=== PATIENT | male | born 1950 | race Caucasian/White ===

== ENCOUNTER → 2024-02-03 09:39 | Outpatient (CLI) | payer OTHER, SELFPAY | LOC: LAB 09:43 | PROVIDERS: Referring Provider Orthopaedic Surgery Adult Reconstructive Orthopaedic Surgery; Visit Provider Orthopaedic Surgery Adult Reconstructive Orthopaedic Surgery | DX: M25.551 Pain in right hip (principal); Z96.643 Presence of artificial hip joint, bilateral | CPT/HCPCS: 36415; 82495; 83018 ==

== ENCOUNTER 2024-09-03 11:43 | Inpatient (IN) | payer MEDICARE, SELFPAY ==
[2024-08-28 08:41] VITALS: BMI 25.7
[2024-09-03] VITALS (9 sets, daily range): BP systolic 90–156; BP diastolic 62–87; PULSE 45–78; RESP 12–24; TEMP 36.2–36.5; O2SAT 95–100; BMI 26.0
--- NOTE | 2024-09-03 | DI.RAD.S_ITS ---
PROCEDURE: XR HIP W PEL IF DONE LT 2V INDICATIONS: LT TOTAL HIP TECHNIQUE: Two views of the left hip were acquired. COMPARISON: [facility], CR, XR HIP W PEL IF DONE LT 2V, 09/03/2024, 15:09. FINDINGS: Bones: There are no osseous abnormalities. SI and hip joints: Left total hip prosthesis is anatomically aligned. Older right total hip prosthesis also anatomically aligned without loosening or infection. Small amount of heterotopic calcification seen in the periarticular region Soft tissues: Gas and soft tissue swelling in the surgical site seen as expected IMPRESSION: Left hip prosthesis in anatomic alignment Dictated by: Saw Solano M.D. on 09/04/2024 at 10:51 Approved by: Saw Solano M.D. on 09/04/2024 at 10:52
--- NOTE | 2024-09-03 06:00 | DI.RAD.S_ITS ---
PROCEDURE: XR HIP W PEL IF DONE LT 2V INDICATIONS: angel TECHNIQUE: Fluoroscopic guidance utilized for a left total hip arthroplasty COMPARISON: None. FINDINGS: Fluoroscopic images submitted for a left total hip arthroplasty. Please see operative note for further discussion. IMPRESSION: Fluoroscopic guidance. Dictated by: Kingsley Canela M.D. on 09/04/2024 at 12:33 Approved by: Kingsley Canela M.D. on 09/04/2024 at 12:33
[2024-09-03] MEDS: LACTATED RINGERS 1,000 ML 42 ML IV ×2 (12:48→15:26)
[2024-09-03] MEDS: CELECOXIB 200 MG CAPSULE 400 MG PO (12:49)
[2024-09-03] MEDS: ACETAMINOPHEN 325 MG TABLET 975 MG PO (12:49)
--- NOTE | 2024-09-03 13:17 | PM.PREOP ---
Pre-operative Note Interval Note History & Physical reviewed/Exam performed by Physician: Yes Changes to H&P: No
[2024-09-03] MEDS: CEFAZOLIN 2 GM/100 ML PREMIX 100 ML IV ×2 (14:15→22:46)
--- NOTE | 2024-09-03 14:43 | SUR.OPER ---
Patient supine on padded [place] table, both arms on padded arm boards at <90, both legs secured in padded traction boots and positioned per surgeon, padded post at patient's groin, pressure points checked and padded.
[2024-09-03] MEDS: ROPIVACAINE/EPI/CLONIDINE/KET 50 ML SYRINGE INJ (14:49)
[2024-09-03] MEDS: TRANEXAMIC ACID 1,000 MG VIAL 2000 MG INJ ×2 (14:50→16:09)
--- NOTE | 2024-09-03 16:22 | P.OP_ITS ---
Operative Date/Time/Diagnoses Date of procedure: 09/03/24 Pre-op diagnosis: Left hip osteoarthritis Post-op diagnosis: same Procedure & Clinicians Procedure: Left total hip arthroplasty Same procedure as scheduled: Yes Surgeon: Danny Boland Laundry Sorter: Alcira Thakur Anesthesia Type: Spinal, Sedation and Local Operative Notes Estimated Blood Loss (mL): 250 Procedure in detail: Left Uncemented Direct Anterior Depuy Total Hip Arthroplasty: Implants: * Hartley Gription size 64 cup?with +4 liner * Actis femoral stem size 10 high offset? * 36 mm -2 ceramic femoral head? Procedure Summary: This 74-year-old male patient is very tall and had bony anatomy consistent with this, as I utilized a 64 cup and a 10 stem. I had templated him for a standard polyethylene liner but the only size 64 liner we had in the hospital today was so I utilized a +4 liner. He had only been 2 mm short preoperatively and the end result after a fair amount of trialing with different constructs was that I used a-2 head after doing some extra broaching with the size 10 stem to sink it as much as possible in order to minimize the total length of his construct. I had templated him for a standard offset stem but with the transitioned to a-2 head it was necessary to utilize a high offset stem. The final construct was appropriate in all parameters and I was physically unable to dislocate his hip with maximum external rotation past 120?. Procedure in Detail: This patient was seen preoperatively and evaluated for hip pain which was refractory to numerous nonoperative treatment modalities. Their hip pain correlated with radiographic changes demonstrating significant degeneration in the hip joint. The risks and benefits of continued nonoperative management versus operative management were discussed at length and all of the patient?s questions were answered. Additional educational materials providing further details beyond our discussion in clinic were provided via a publicly available patient education video which included the incidence of medical complications associated with total hip arthroplasty, reasons for revision following total hip arthroplasty, and patient satisfaction rates following total hip arthroplasty. That video can be accessed at [email or web address] . With this understanding of the risks inherent to the procedure, the patient elected to move forward with operative management. Following preoperative optimization, the patient was scheduled for surgery. The patient was met in the preoperative holding area the day of the procedure and all questions were answered. The patient?s nares were swabbed with betadine in order to decolonize them from MRSA. Informed consent was signed and the left limb was marked with indelible ink.? The patient was brought back to the operating room where anesthesia was induced. The patient was transferred to the [place] table and all bony prominences were padded. The operative site was prepped and draped in the usual sterile fashion. Prior to incision, tranexamic acid and cefazolin were administered. Operative templating images were displayed demonstrating the anticipated implant sizes and correct operative extremity. A timeout procedure was performed verifying the patient?s identity, medical comorbidities, allergies, relevant medications, anesthesia type and the surgical plan. All present were in agreement. The assistance of a physician human resources benefits assistant was required for positioning, room setup, soft tissue retraction and wound closure. Without this assistance, the procedure would have been significantly more challenging and time consuming.?? A direct anterior approach to the hip was utilized. This was performed with a longitudinal incision through a Heuter interval. The incision was planned 2 cm distal and 2 cm lateral to the ASIS extending towards the lateral patella, in line with the muscle body of the TFL. Following incision, the subcutaneous tissue was dissected while taking care to avoid injury to the lateral femoral cutaneous nerve. The fascia overlying the TFL was identified by dissecting off the overlying fat and identifying perforating vessels to the TFL. The TFL fascia was incised and dissected away from the medial border of the TFL. A cobra retractor was placed over the superior femoral neck between the abductors and the hip capsule and used to reflect the TFL laterally. A Novato self-retainer was then placed in the distal aspect of the wound between the TFL and the rectus femoris. This was tensioned to open up the direct anterior interval and the lateral circumflex vessels were identified and coagulated using electrocautery. The floor of the TFL fascia was incised, exposing the pericapsular fat overlying the hip capsule. A second cobra retractor was placed on the inferior femoral neck. A double-bent soft tissue retractor was placed on the anterior wall of the acetabulum and used to tension the reflected head of rectus femoris, which was then released in order to limit soft tissue tension. A capsulotomy was made in the midline of the anterior hip capsule in line with the femoral neck ending at the vastus tubercle. The double-bent retractor was removed in order to limit the amount of time that a soft tissue retractor remained on the anterior wall and protect the femoral nerve. Tag stitches were placed in the superior and inferior leaflets of the hip capsule. An Ross soft tissue retractor was introduced over the tag stitches and tensioned in the interval between the rectus femoris and the TFL in order to retract and protect those muscles. The cobra retractors were replaced intracapsularly, with one over the superior neck in the pocket created by the base of the greater trochanter and the other on the femoral head. The capsulotomy was extended laterally to the base of the greater trochanter and medially to the lesser trochanter. This required externally rotating the hip. Once the lesser trochanter had been identified, a neck cut was planned according to measurements from preoperative templating. A ruler was cut at the length measured between the superior aspect of the lesser trochanter and the collar of the prosthesis. This line was extended towards the inferior aspect of the lateral cobra retractor to plan a cut which would leave minimal residual femoral neck laterally. The neck was cut at 60 degrees of external rotation along that line. A second cut was performed to remove a large napkin ring and facilitate head extraction. The napkin ring cut and femoral head were removed.?? A broad anterior wall retractor was placed between the labrum and the anterior capsule so that the anterior capsule would prevent capturing and pinching the femoral nerve anteriorly. An additional retractor was placed on the posterior wall. External rotation and traction were applied through the [place] table so that the cut surface of the femoral neck would not restrict access to the acetabulum. The labrum was excised sharply and the pulvinar was excised with electrocautery to limit bleeding from branches of the obturator artery. Acetabular reamers were selected based on preoperative templating and measurements of the excised femoral head. These were introduced into the acetabulum. Fluoroscopy was utilized to replicate a standing AP pelvis radiograph by centering over the pelvis, rotating until there was appropriate symmetry between the obturator foramen, and introducing caudal tilt to match the position of the pubic symphysis relative to the sacrococcygeal junction according to the patient?s anatomy. Fluoroscopy was utilized to ensure appropriate reaming depth. Once satisfied with the reaming depth corresponding to the preoperative template and the pinch fit between the columns, an appropriate sized acetabular cup was selected which would provide 1 mm of press-fit. This cup was introduced and manipulated until appropriate abduction and anteversion angles were obtained with careful attention to appropriate abduction and anteversion angles as evaluated by the position of the cup relative to the anterior and posterior madrigal of the acetabulum and the AP fluoroscopy which recreated the patient?s standing radiograph. The cup was impacted into place. Peripheral osteophytes were removed. The acetabular liner was then placed with care to ensure locking of the locking mechanism.? Attention was then turned to the femur. All retractors were removed, traction was released, a retractor was placed in the interval between the hip capsule and the gluteus minimus, and the hip was externally rotated to 90 degrees. Traction was applied through the [place] table to tension the lateral capsule and this was released using electrocautery. Traction was released and a [place] hook was placed posteriorly around the proximal femur at the level of the vastus ridge. The table height was lowered in order to restrict the tension on the anterior structures during hip hyperextension to limit the risk of femoral nerve palsy. With traction off and the hip at 90 degrees of external rotation, the hip was hyperextended and adducted while manually elevating the femur away from the acetabulum with the [place] hook to ensure it would not be caught behind the greater trochanter. An asymmetric retractor was placed over the calcar and a broad double-pronged retractor was placed over the greater trochanter. The tag stitch capturing the lateral leaflet of the capsule was moved to the medial side, leaving the conjoined and piriformis tendons isolated in the face of the greater trochanter. The hip was externally rotated and elevated. A release of the conjoined tendon was not necessary in order to obtain adequate exposure for broaching. The canal was opened with an opening broach and a rasp was used to remove cancellous bone. A rongeur was used to remove the residual lateral bone at the base of the greater trochanter to avoid placing the stem in varus. The f emur was then broached to the appropriate sized stem yielding good rotational fit and fill of the canal as well as appropriate version of the stem trial. Neck and head trials were placed, all retractors were removed and the hip was returned to neutral abduction and extension. I then reduced the hip. Initial trialing was performed with a size 10 broach, a standard offset neck and a -2 head. I initially manually externally rotated the hip and found no instability. I then locked the hip in 45 degrees of external rotation and dropped it to the floor with traction off which demonstrated no instability. An AP pelvis fluoroscopic image matching the preoperative standing radiograph with both lesser trochanters visible and both hips in 40 degrees of external rotation demonstrated that the operative side was slightly long in terms of length but had obvious decreased offset. I therefore transitioned to a +1.5 head to try to increase my offset. The offset with that construct looked more appropriate but the hip was obviously significantly long. I therefore placed a high offset stem to ensure that it would not look excessively offset and got fluoroscopic images with the which demonstrated that offset appeared appropriate. As the +1.5 head had too much lengths, and the-2 head had 2 little offset when I trialed with a standard offset neck, utilization of a high offset stem and a-2 head allowed me to achieve an appropriate construct. AP and lateral hip fluoroscopic images were obtained to evaluate the broach size which demonstrated good canal fill. The hip was dislocated and I returned to the broaching position. Based on my evaluation during initial trialing I planned to place a high offset size 10 stem and a-2 head. In order to decrease the length of my construct as much as possible rebroached the femur with the size 10 broach to try to sink it. I would estimate that I was able to sink it 2-3 mm further in order to further decrease leg length. The definitive stem was placed and the trunnion was cleaned and dried. I placed a ceramic head onto the trunnion and impacted it into place on the [place]man taper.?? All retractors were removed and the hip was reduced. A dilute mixture of betadine and peroxide was used to bathe the soft tissues during final fluoroscopic assessment. Appropriate component positioning was confirmed on an AP pelvis radiograph with the operative and nonoperative legs in 40 degrees of external rotation, evaluating leg length and offset. Appropriate stem fill was evaluated on AP and lateral hip radiographs. No fractures were identified on these radiographs. There was no hip instability with maximum (120?) external rotation as well as a 45 degree drop test. The hip was copiously irrigated with pulse lavage. The capsule was closed with absorbable interrupted suture. The TFL fascia was closed with barbed suture while carefully protecting the lateral femoral cutaneous nerve from entrapment. A mixture of Ropivacaine, Epinephrine, Clonidine and Toradol was infiltrated throughout the soft tissues. The skin was closed with 2-0 and 3-0 sutures. Surgical glue was applied and a soft dressing was placed.??The sponge, instrument and needle counts were reported as being correct at the end of the case.??No obvious complications occurred. The patient was transferred from the [facility] back to a stretcher. The patient emerged from anesthesia without difficulty and was taken to the PACU in a stable condition.? Plan for aftercare: * Anterior hip precautions * Weightbearing as tolerated * Aspirin 81 twice per day for DVT prophylaxis * Anticipate discharge to a usp facility, [facility], after a 3 day inpatient stay. [place] and we are going to prolong him returning to the bone as long as possible for him to recover his mobility beforehand to avoid any falls * Patient should use his own eye drops and nebivolol during his hospital stay with us * Mobilize in the halls as much as is logistically possible. If physical therapy is unavailable for mobilization, then patient should mobilize with nursing staff * Multimodal pain regimen with no IV opioids ordered * Apply ice machine to operative hip. Ensure that sufficient ice is in the chamber for the pad to remain cold * Follow up at [facility] in 2 weeks * Detailed postoperative instructions available at [email or web address]
[2024-09-03] MEDS: ACETAMINOPHEN 325 MG TABLET 650 MG PO (18:20)
[2024-09-03] MEDS: IBUPROFEN 600 MG TABLET PO (18:21)
[2024-09-03] MEDS: LACTATED RINGERS 1,000 ML 100 ML IV (18:22)
[2024-09-03] MEDS: ASPIRIN EC 81 MG TABLET PO (20:19)
[2024-09-03] MEDS: TRAMADOL 50 MG TABLET PO (20:19)
[2024-09-03] MEDS: DOCUSATE 100 MG CAPSULE PO (20:20)
[2024-09-03] MEDS: FAMOTIDINE 20 MG TABLET 10 MG PO (20:21)
[2024-09-03] MEDS: MELATONIN 3 MG TABLET 6 MG PO (20:21)
[2024-09-03] MEDS: TRAZODONE 50 MG TABLET PO (20:26)
[2024-09-04] MEDS: IBUPROFEN 600 MG TABLET PO ×5 (00:06→23:26)
[2024-09-04] MEDS: ACETAMINOPHEN 325 MG TABLET 650 MG PO ×5 (00:07→23:27)
[2024-09-04 00:22] VITALS: BP 116/78; PULSE 74; RESP 20; TEMP 37.2; O2SAT 95
[2024-09-04] MEDS: CALCIUM CARBONATE 500 MG TAB PO (00:40)
[2024-09-04] MEDS: CEFAZOLIN 2 GM/100 ML PREMIX 100 ML IV (05:48)
[2024-09-04 06:05] LABS: Hematocrit 36.3 % (41-53); Hemoglobin 12.2 g/dL (13.5-17.5)
[2024-09-04 07:00] VITALS: BP 113/71; PULSE 72; RESP 18; TEMP 36.6; O2SAT 96
--- NOTE | 2024-09-04 07:28 | PM.PNPO.1 ---
Subjective Subjective Date Patient Seen: 09/04/24 Time Patient Seen: 08:01 Interval history: Mr Holden is sitting up in bed, comfortable. Good pain control w/ IBPN, Tylenol, and ice. Has been OOB but has not yet worked w/ PT. Denies nausea. Voiding without difficulty. Exam Vital Signs (past 8 hours): - 09/04/24 00:22 Temperature 98.9 F Pulse Rate 74 Respiratory Rate 20 Blood Pressure 116/78 Pulse Oximetry 95 Oxygen Flow Rate 0 Oxygen Delivery Method Room Air Oxygen Flow Rate 0 Narrative Exam Narrative: 4/5 hip flexors, quadriceps, hamstrings; 5/5 PF, DF, EHL on left. Sensation to touch intact throughout LLE. Calf soft and compressible. Aquacel dressing CDI. Objective Labs 09/04/24 05:50 Labs: Laboratory Results - last 24 hr 09/04/24 05:50 Hgb 12.2 L Hct 36.3 L PFSH Medical History (Updated 08/28/24 @ 12:52 by Kailee Rangel RN) History of angina History of COVID-19 (03/2023) Skin cancer Left shoulder pain Osteoarthritis Decreased GFR Hearing loss Glaucoma RLS (restless legs syndrome) BPH (benign prostatic hyperplasia) Insomnia HLD (hyperlipidemia) HTN (hypertension) GERD (gastroesophageal reflux disease) Diastolic dysfunction CAD (coronary artery disease) Surgical History (Updated 09/04/24 @ 07:28 by Alcira Thakur PA-C) History of orthopedic surgery Hx of tonsillectomy History of transurethral resection of prostate Hx of eye surgery (2022) H/O vasectomy History of total right hip replacement (~2013) History of total right knee replacement (07/30/21) Hx of heart artery stent (2019) Social History household members: none Smoking Status: Never smoker alcohol intake: current Assessment & Plan Post-op Assessment and plan (1) S/P total hip arthroplasty: Assessment and Plan narrative: 1) Weightbearing as tolerated, anterior hip precautions. 2) His plan is to stay at [facility] while his friend's house is being readied for him, then he will stay with his friend for a month prior to going home. Discharge planning has been consulted. 3) ASA 81mg BID x 4 weeks for VTE prophylaxis. 4) Multimodal pain control to include use of ice machine. Postoperative Procedures: Procedures Operation Date: 09/03/24 13:45 Actual Procedure Side Surgeon p Total Hip Arthroplasty/Anterior Approach Left Danny Boland MD Postoperative day: 1 Quality VTE Deep Vein Thrombosis/Pulmonary Embolism Present on Admission: No
--- NOTE | 2024-09-04 08:06 | PC.NURSE ---
Patients dressing to l.anterior hip is cdi, patient is able to lift his leg up and he states that he is comfortable this morning. CMS wnl and ppx2. Daughter is visiting from [place]. Patient is going to be going to rehab as he lives on a boat and doesnt have much room to move around.
[2024-09-04] MEDS: DOCUSATE 100 MG CAPSULE PO ×2 (09:27→20:37)
[2024-09-04] MEDS: TORSEMIDE 10 MG TABLET 5 MG PO (09:27)
[2024-09-04] MEDS: FAMOTIDINE 20 MG TABLET 10 MG PO ×2 (09:27→20:37)
[2024-09-04] MEDS: ATORVASTATIN 20 MG TABLET 40 MG PO (09:27)
[2024-09-04] MEDS: ASPIRIN EC 81 MG TABLET PO ×2 (09:27→20:37)
[2024-09-04] MEDS: POTASSIUM CHLORIDE 10 MEQ TAB PO (09:28)
[2024-09-04] MEDS: EZETIMIBE 10 MG TABLET PO (09:32)
[2024-09-04] MEDS: TIMOLOL EYE-BOTH ×2 (10:31→20:40)
[2024-09-04] MEDS: SODIUM CHLORIDE 0.9% FLUSH 10 ML IV ×2 (10:31→20:40)
[2024-09-04] MEDS: DORZOLAMIDE EYE-BOTH ×2 (10:31→20:40)
--- NOTE | 2024-09-04 10:55 | OT.IP.EVAL ---
Current Diagnoses Unilateral primary osteoarthritis, left hip (09/03/24) Presence of unspecified artificial hip joint (09/03/24) Surgery Performed Operation Date: 09/03/24 13:45 Actual Procedures p Total Hip Arthroplasty/Anterior Approach(Left) - Danny Boland MD Past Medical History (Last Updated 08/28/24 @ 12:52 by Kailee Rangel RN) BPH (benign prostatic hyperplasia) CAD (coronary artery disease) Decreased GFR Diastolic dysfunction GERD (gastroesophageal reflux disease) Glaucoma Hearing loss History of angina History of COVID-19 (03/2023) HLD (hyperlipidemia) HTN (hypertension) Insomnia Left shoulder pain Osteoarthritis RLS (restless legs syndrome) Skin cancer Surgical History (Last Updated 08/28/24 @ 12:52 by Kailee Rangel RN) H/O vasectomy History of orthopedic surgery History of total right hip replacement (~2013) History of total right knee replacement (07/30/21) History of transurethral resection of prostate Hx of eye surgery (2022) Hx of heart artery stent (2019) Hx of tonsillectomy Occupational Therapy Inpatient Evaluation/Re-Eval M1 PT/OT-IP Prior Functional Status Start: 09/04/24 10:58 Freq: NEEDED Status: Active Protocol: Document 09/04/24 10:58 [facility] (Rec: 09/04/24 11:12 [facility] [id number]) Medical Review Prior Functional Status Communication I Mobility and Gait Having pain which limited his mobility. Activities of Daily Living and IADL's Pt has pain with ADL and IADL needs. Prior Functional Level (Other details) Pt lives on a boat. Social History Household Members none Living Arrangements Other Number of Floors (Floors) Two Floors. Pt lives on a 40 ft boat. Number of Stairs To Enter/Railing? Pt has two step with no rails and then having to step over to get on his boat and then having to walk on the edge of the boat and then step into the boat. There are various surfaces and levels that pt has to negotiate on the boat. There are 5 steep steps with bilateral rails to get down to the main cabin area. Home Environment Standard Height Toilet Home Equipment Raised Toilet Seat w/Armrests Additional Social History Comment Pt has a very high bed and low ceiling and states has to spin himself on his bottom in order to get into bed. Pt states showers at the gym or [employer]. M2 OT-IP Current Condition Start: 09/04/24 10:58 Freq: Status: Active Protocol: Document 09/04/24 10:58 [facility] (Rec: 09/04/24 11:12 [facility] [id number]) Occupational Therapy Current Condition Current Condition Evaluation Date 09/04/24 Treatment Diagnosis S/P L KARL Diagnosis Onset Date 09/03/24 Post Operative Precautions Anterior Hip Precautions No Hip Extension,No Hip External Rotation M3 OT- IP Subjective and Pain Start: 09/04/24 10:58 Freq: Status: Active Protocol: Document 09/04/24 10:58 [facility] (Rec: 09/04/24 11:12 [facility] [id number]) OT- Subjective Occupational Therapy Visit Type Type Initial Evaluation Visit Start Time 10:25 Visit Stop Time 10:55 Occupational Therapy Visit Comments Patient Comments Pt agreed to work with OT, pt' s daughter in the room. Patient/Caregiver Goals TO go to skilled rehab. OT Pain Assessment Pain When Pain Assessed At Rest Pain Present Pain Present Denied Pain M4 OT- IP ADL's Start: 09/04/24 10:58 Freq: Status: Active Protocol: Document 09/04/24 10:58 [facility] (Rec: 09/04/24 11:12 [facility] [id number]) OT ECS-Fvkj-Cgunvrm General Evaluation Self-Feeding Ability Independent OT ADL-Grooming General Evaluation Grooming Ability Independent OT ADL-Oral Care General Eval Oral Care Ability Independent OT ADL-Dressing General Eval Lower Body Dressing Ability Maximum Assistance Comments OT Dressing Comments Able to practice use of cold type composing machine operator and sock aid with pt. OT ADL-Toileting Comments OT Toileting Comments Spoke about standing to wipe may be easier and use of wet ones. In addition to use a urinal at night. OT ADL-Bathing Comments OT Bathing Comments Spoke of shower chair /tub bench as pt's friend has a tub shower. Pt to stay at their house after skilled rehab- M5 OT- IP IADL's Start: 09/04/24 10:58 Freq: Status: Active Protocol: Document 09/04/24 10:58 [facility] (Rec: 09/04/24 11:12 [facility] [id number]) OT-Instrumental Activities of Daily Living Deficits IADL Deficits Identified Deficits Home Safety Awareness Awareness of Need for Assistance at Home Good Awareness Ability to Problem Solve Emergency Able to Problem Solve Situations Medication Management Medication Management Comments Prior pt did. Money Management Money Management Comments Prior pt did. Meal Preparation Meal Preparation Comments Pt will need assist. Nail Puller Nail Puller Comments Pt will need assist. M6 OT- IP Functional Cognition Start: 09/04/24 10:58 Freq: Status: Active Protocol: Document 09/04/24 10:58 [facility] (Rec: 09/04/24 11:12 [facility] [id number]) Cognitive Factors Limiting Selfcare Function Cognitive Ability Level of Alertness Alert Patient Orientation Name,Place,Situation Attention Span Ability Capable of Focused Attention, Capable of Sustained Attention Ability to Follow Commands Able to Follow One Step Commands Memory Description Short Term Impaired Cognitive Comments Cognitive Assessment Comments Pt a little groggy and forgetful and repeating stories of his last hip sx. Pt needing initial reminders of his anterior precautions. OT- Vision and Hearing OT- Hearing Assessment OT- Hearing Assessment Hearing Impaired,Use of Hearing Aids OT- Vision Assessment Visual Acuity Glasses All The Time Visual Attentiveness WFL Occular Pursuits WFL M7 OT- IP Mobility and Balance Start: 09/04/24 10:58 Freq: Status: Active Protocol: Document 09/04/24 10:58 [facility] (Rec: 09/04/24 11:12 [facility] [id number]) OT-Transfer Assessment Sit to and From Stand Sit to and from Stand Contact Guard Assistance Transfers Transfer Ability Standby Assistance,Contact Guard Assistance Technique Transfer Destination Bed,Toilet Transfer Technique Stand Step Pivot Devices Transfer Assistive Devices Gait Belt,Front Wheeled Walker Comments Mobility Comments Pt CGA/close SBA with FWW, CGA while coming to stand and sitting to the edge of the bed. VC to push on surfaces when coming to stand. OT- Balance Assessment Sitting Balance and Reactions Static Sitting Balance Ability Normal Dynamic Sitting Balance Ability Good Standing Balance and Reactions Static Standing Balance Ability Good Dynamic Standing Balance Ability Good M8 OT- IP Objective Assessments Start: 09/04/24 10:58 Freq: Status: Active Protocol: Document 09/04/24 10:58 [facility] (Rec: 09/04/24 11:12 [facility] [id number]) OT Gross Range of Motion Upper Extremity Range of Motion Assessment Within Functional Limits OT Strength Upper Extremity Strength Assessment Within Functional Limits M9 OT- IP Assessment and Plan Start: 09/04/24 10:58 Freq: Status: Active Protocol: Document 09/04/24 10:58 [facility] (Rec: 09/04/24 11:12 [facility] [id number]) OT Summary Assessment and Plan Potential Rehabilitation Potential Excellent Analytic Complexity at Evaluation Low Summary OT Impairments Balance,Functional Mobility, Dressing,Toileting,Bathing, Toilet Transfers,Shower Transfers Progress Towards Goals Progressing Toward Goals Assessment Summary Pt low complexity and main barriers are steps and various level on his boat, and needing occasional reminders of his anterior precautions. Pt to go to skilled rehab when medically stable. Goals Dressing Goal Independent,Music Educator,Sock Aid Toileting Goal Independent Bathing Goal Independent Toilet Transfer Goal Independent Shower Transfer Goal Independent OT-Other Goals Goals based on use SPC as pt not able to use FWW on the boat. Days to Meet Goals 15 Frequency of Treatment Other frequency 5x/week Treatment Plan OT Treatment Plan ADL Training,Functional Mobility,Patient/Family Education,Discharge Planning Discharge Recommendations OT Discharge Recommendations SNF Rehab Home Equipment Needs LB dressing equipment Transportation Needs at Discharge Private Vehicle,Wheelchair/ Cabulance
--- NOTE | 2024-09-04 11:15 | PT.IIE ---
Current Diagnoses Unilateral primary osteoarthritis, left hip (09/03/24) Presence of unspecified artificial hip joint (09/03/24) Surgery Performed Operation Date: 09/03/24 13:45 Actual Procedures p Total Hip Arthroplasty/Anterior Approach(Left) - Danny Boland MD Surgical History (Last Updated 08/28/24 @ 12:52 by Kailee Rangel RN) H/O vasectomy History of orthopedic surgery History of total right hip replacement () History of total right knee replacement (07/30/21) History of transurethral resection of prostate Hx of eye surgery (2022) Hx of heart artery stent (2019) Hx of tonsillectomy Medical History (Last Updated 08/28/24 @ 12:52 by Kailee Rangel RN) BPH (benign prostatic hyperplasia) CAD (coronary artery disease) Decreased GFR Diastolic dysfunction GERD (gastroesophageal reflux disease) Glaucoma Hearing loss History of angina History of COVID-19 (03/2023) HLD (hyperlipidemia) HTN (hypertension) Insomnia Left shoulder pain Osteoarthritis RLS (restless legs syndrome) Skin cancer Physical Therapy Inpatient Evaluation/Re-Eval M1 PT/OT-IP Prior Functional Status Start: 09/04/24 12:57 Freq: NEEDED Status: Active Protocol: Document 09/04/24 11:15 [facility] (Rec: 09/04/24 13:12 [facility] [id number]) Medical Review Prior Functional Status Medical History Reviewed No Communication able to make needs known Mobility and Gait pt stated that he was independent with all mobilities and ambulation without AD Social History Household Members none Living Arrangements Apartment/Condo Number of Floors (Floors) One Floor Number of Stairs To Enter/Railing? pt lives on a boat but plans to d/c to his friends house after SNF rehab: stated that his friends apartment will only be available by sep. info providing is regarding friend's apartment set up: 2 steps without rails to enter Home Environment Standard Height Toilet,Tub/ Shower Home Equipment Straight Cane,Raised Toilet Seat w/Armrests,Technical Clerk M2 PT-IP Current Condition Start: 09/04/24 12:57 Freq: NEEDED Status: Active Protocol: Document 09/04/24 11:15 [facility] (Rec: 09/04/24 13:12 AB [id number]) Physical Therapy Current Condition Current Condition Evaluation Date 09/04/24 Treatment Diagnosis s/p L KARL anterior: difficulty in walking Onset Date 09/03/24 M3 PT-IP Subjective Start: 09/04/24 12:57 Freq: NEEDED Status: Active Protocol: Document 09/04/24 11:15 [facility] (Rec: 09/04/24 13:12 AB [id number]) Subjective Physical Therapy Visit Type Type Initial Evaluation Visit Start Time 11:15 Visit Stop Time 12:00 Number of NURSING INFORMATICS SPECIALIST Visits 0 Physical Therapy Visit Comments Patient Comments agreeable to do PT Therapy Pain Assessment Pain Present Pain Present Denied Pain M4 PT-IP Mobility and Gait Start: 09/04/24 12:57 Freq: NEEDED Status: Active Protocol: Document 09/04/24 11:15 AB (Rec: 09/04/24 13:12 AB [id number]) PT-Bed Mobility Assessment Supine to Sit Supine to Sit Minimal Assistance Sit to Supine Sit to Supine Minimal Assistance PT-Transfer Assessment Sit to and From Stand Sit to and from Stand Standby Assistance,Contact Guard Assistance,Minimal Assistance,1 Person Assistance ,Use of Upper Extremities Equipment Transfer Assistive Device Gait Belt,Front Wheeled Walker Orthotic/Prosthetic Devices or Brace: No Transfers Transfer Destination Bed,Chair Transfer Technique ambulated Transfer Ability Level of Assist Standby Assistance,1 Person Assistance,Use of Upper Extremities Comments Mobility Comments checked on pt and pt up standing by the sink finishing up brushing his teeth and puts on his hearing aid. pt's daughter in room. pt ambulated to EOB SBA using FWW . pt agreed to do PT. obtained PLOF and home set up. pt already saw OT. reviewed hip precautions and pt only recalled 1/2. educated pt regarding anterior hip precautions. pt completed sit to stand from EOB SBA to CGA and ambulated to the EOB using FWW SBA. completed sit<> supine min A for LLE mobility and max cues for techniques. pt completed sit to stand from the EOB SBA to CGA and ambulated in room ~ 30 ft SBA. pt sat on the chair and rested. asked pt again regarding hip precautions and only recalled 1/2. educated hip precautions again. pt completed sit to stand from chair min A and max cues. pt with heavy UE use on chair to get up with unsteady intial standing. instructed pt to sit back down. educated pt on sit <>stand and completed x 2 from chair CGA and max cues. positioned pt on the chair. call light and table placed within reach. Gait Assessment Gait Gait Assistance Required: Standby Assistance Distance (Feet) 30 Able to Maintain Weight Bearing Status Yes During Gait Assistive Devices Assistive Device Gait Belt,Front Wheeled Walker Orthotic/Prosthetic Devices or Brace: No Gait Deviations General Gait Pattern Decreased Stride Length, Decreased Feet Clearance Factors Limiting Gait Function Factors Limiting Gait Function Decreased Activity Tolerance, Decreased Strength,Difficulty Following Directions,Limited Range of Motion,Poor Balance, Poor Safety Awareness PT-Balance Assessment Sitting Balance and Reactions Static Sitting Balance Ability Normal Dynamic Sitting Balance Ability Good Standing Balance and Reactions Static Standing Balance Ability Fair Dynamic Standing Balance Ability Fair Device Used FWW M5 PT-IP Objective Assessments Start: 09/04/24 12:57 Freq: NEEDED Status: Active Protocol: Document 09/04/24 11:15 AB (Rec: 09/04/24 13:12 AB [id number]) Orientation Orientation/Cognition Level of Alertness Alert Orientation Name,Place,Situation Language Function Ability Hard of Hearing Safety Awareness Decreased Safety Awareness Memory Description Short Term Impaired Gross Range of Motion Lower Extremity ROM Assessment Right Impaired Impairments R hip flexion limited ~ 90-100 deg Strength Lower Extremity Strength Assessment Left Impaired Hip 3+/5 Knee 4-/5 Coordination Assessment Gross Coordination Gross Coordination WNL Muscle Tone Muscle Tone WNL Yes M6 PT-IP Treatment Start: 09/04/24 12:57 Freq: NEEDED Status: Active Protocol: Document 09/04/24 11:15 AB (Rec: 09/04/24 13:12 AB [id number]) Physical Therapy Treatment Education Education Provided Precautions,Weight Bearing Status,Post-Op Packet,Safety M7 PT-IP Assessment and Plan Start: 09/04/24 12:57 Freq: NEEDED Status: Active Protocol: Document 09/04/24 11:15 AB (Rec: 09/04/24 13:12 AB [id number]) PT Summary Assessment and Plan Potential Rehabilitation Potential Fair Status of Condition at Evaluation Evolving Summary Impairments Pain,ROM,Strength,Balance, Coordination,Sensation,Tone, Cognition,Bed Mobility, Transfers,Gait,Activity Tolerance Assessment Summary pt is a 74 y/o M s/p L KARL anterior approach POD 1. pt has L hip anterior precautions and is WBAT. pt requiring SBA to CGA with transfers and ambulation using FWW but needing CGA to min A when getting up from a low surface. pt lives alone on a boat and will need to be more independent than current level . pt plans to go to SNF. Goals Bed Mobility Goal Independent Transfer Goal Independent,Front Wheeled Walker Gait Goal Independent,Front Wheel Walker Gait Distance 300 Other Goals up/down 2 steps SPC/without rail SBA Days to Meet Goals 10 Frequency of Treatment Other frequency 1-2x/day Treatment Plan Physical Therapy Treatment Plan Bed Mobility Training,Transfer Training,Gait Training, Therapeutic Exercise,Balance Retraining,Post Op Education, Discharge Planning,Hot or Cold Pack,Neuromuscular Re-ed, Coordination Retraining,Manual Therapy Precautions Anterior Hip Precautions No Hip Extension,No Hip External Rotation Weight Bearing Status Weight Bearing Status Weight Bear as Tolerated Allowed Weight Bearing Amount (enter % LLE WBAT or #) (%) Recommendations To Nursing Amount of Assist Needed 1 Person Assist Discharge Recommendations PT Discharge Recommendations SNF Rehab Transportation Needs at Discharge Private Vehicle,Wheelchair/ Cabulance
--- NOTE | 2024-09-04 14:55 | CM.DANOTE ---
Initial DCP Assessment Visit Note Reviewed EMR and team rounds for status updates. Met with pt at bedside, his dtr and a few friends were also present in the room. Pt was found to be alert/oriented, ambulating around the room with a walker, pain is well controlled at this time. Pt lives independently at baseline on his boat. His plan is for d/c to SNF rehab, followed by staying with a friend for 6-weeks after SNF d/c. Dtr is planning to drive him, [facility]. Faxed referral to [facility], per his request. Pt will be eligible after 3-midnights, which will be 09/06 if they have bed availability. Payor: [facility] Attending: Dr. Boland Pt is a 74 year-old M post-op day 1 from a L-total hip arthroplasty surgery. He has done well postoperatively. He has a hx of prior R-hip total arthroplasty, and R-knee total arthroplasty. He's also tried several conservative attempts at pain reduction, including physical therapy and pain meds, with no lasting benefit. DCP will continue to work on transition d/c to [facility], they will need to start an auth with [facility]. Discharge Planning/Care Management CM Discharge Assessment Start: 09/04/24 14:53 Freq: Status: Active Protocol: Document 09/04/24 14:53 DPL (Rec: 09/04/24 14:55 DPL [id number]) Discharge Planning Assessment Assigned Aircraft Structure Mechanic YANCY Rivas Advance Directives? No History Provided By Patient,Medical Record Has Patient been admitted in last 30 No days? Prior Living Arrangements Other Comment boat Household Members none Type of transporation used prior to Drives own vehicle admit Independent with ADL's Yes Is patient alert and oriented? Yes Comment N/A Caregiver for Another No Community Services used prior to Physical Therapy admission: DME Already Rented / Owned FWW / Walker Patient/Family Preference Correction Facility Barriers to Discharge No Discharge Plan Correction Facility Transportation Arrangement Daughter Referrals Initiated Correction If patient plan is SNF: Has PASSR been No completed? Medicare Choice List Provided Yes Has Agency SNF been contacted Yes Whiteboard Updated in Patient Room with Yes name and ext. # of Aircraft Structure Mechanic Review Status In Process Please Provide Date Initial DC 09/04/24 Assessment Was Performed Pre-Anesthesia Assessment Start: 08/28/24 08:41 Freq: Status: Active Protocol: Document 08/28/24 08:41 CAB (Rec: 08/28/24 09:54 CAB [id number]) Pre-Anesthesia Assessment PAC Comment Phone assess 08/28/24 Preferred Name [facility] Patient Information Reviewed Via Phone Assessment Assessment Completed With Patient Diagnostic Results BMP/CMP,CBC,EKG Comment Outside labs/EKG scanned Primary Care Provider Polina Tucker Comment Clearance form 06/19/24, pre-op 05/16/24 scanned and in surgery folder Specialist Seen Warp Hauler,Opthamologist/ Manager Environmental Services,Orthopedist Primary Language Slovak Nonprofit Director Required No Height 187.96 cm Weight 90.718 kg Body Mass Index (BMI) 25.7 Hearing Ability Hearing Impaired,Use of Hearing Aid Visual Assist Glasses Dentition Type Teeth, Natural Present Barriers to Learning Auditory Hx Anesthesia Reactions No Hx Family Anesthesia Reaction No Hx Malignant Hyperthermia No Hx Blood Transfusions No Anesthesia Review Requested No Patient Care Associate No alcohol intake current alcohol intake frequency a few times a month Smoking Status Never smoker Substance Use Type [#R] does not use Pain Present Pain Reported Musculoskeletal Symptoms Abnormal Gait,Difficulty Walking,Joint Pain History of Falling (Recent or History of No ) Patient is completely paralyzed or No completely immobile Mental Status Oriented to own ability Is patient on oxygen? No Does patient have CIFUENTES/SOB No Hx Sleep Apnea No Currently Taking a Beta Katrina Yes: Bystolic Can You Climb a Flight of Stairs Without Yes SOB Hx Chest Pain No: Pt denies ever having any chest pain Hx SOB No Hx Syncope or Dizziness No Anti-Coagulant Therapy Yes: ASA-advised to hold 7 days prior per Cardiology Has a Warp Hauler Yes: Pre-op 05/21/[address] Escalante @ [facility] [phone] Cardiac Testing No Hx Pacemaker/ICD No Pacemaker Rep Required? No Cardiac Clearance Received Yes Comment Cardiac records scanned and in surgery folder Additional comment Very active 2 hr workouts 4 days/week, up/down flights of stairs w/o issue Diet Type At Home Regular Dysphagia No Gastrointestinal Symptoms Reflux Bladder Pattern Nocturia Urinary Catheter Present No Hx Urinary Self Catheterization No Diabetes No HgbA1C 5.6 Date 05/11/24 Presence of External or Internal Medical Yes: Right Hip/knee, cardiac Devices stents x 3 Comment No covid symptoms in last 8 weeks Marital Status Lives With none Current Living Arrangements Other Comment Lives on 40' sailboat in [facility] [place] [employer] Family,Friend(s) Comment Daughter coming up from [place] to support Does the Patient Have Assistance After Yes: Plans to go to friend's Surgery house after SNF Patient Discharge Plan Description Correction Facility/Rehab Comment Pt advised will DC [facility]. Feels Safe in Current Environment Yes Been Physically Hurt or Threatened By a No Person in Current Environment Do you have thoughts of harming yourself None or others? Are you currently considering suicide? No Do you have a plan to hurt yourself or No Plan others? Do You Have Any Spiritual Beliefs That No May Affect Your HC Choices? Do You Have Any Cultural Practices That No May Affect Your HC Choices? Comment Reji Who Can We Speak to About Patient's Care Family, friends Identifying Code for Release of Patient Declines to issue Information Health Care Proxy/Next of Kin [place] (daughter) Health Care Proxy Emergency Contact Name Zeynep Cruz (friends ) Emergency Contact Advance Directives? No Power of Compensation Administrator Yes Power of Compensation Administrator Name [place] (daughter) Power of Compensation Administrator PAC Instructions Durable medical equipment, Medications to take/avoid,No ETOH/petroleum product on skin DOS,NPO,Pre-surgical wash, Sensory aids,Sturdy shoes/ comfortable clothes,Do not bring valuables and remove jewelry
--- NOTE | 2024-09-04 15:35 | PT.IPTN ---
Current Diagnoses Unilateral primary osteoarthritis, left hip (09/03/24) Presence of unspecified artificial hip joint (09/03/24) Surgery Performed Operation Date: 09/03/24 13:45 Actual Procedures p Total Hip Arthroplasty/Anterior Approach(Left) - Danny Boland MD Physical Therapy Treatment Note M2 PT-IP Current Condition Start: 09/04/24 12:57 Freq: NEEDED Status: Active Protocol: Document 09/04/24 11:15 AB (Rec: 09/04/24 13:12 AB [id number]) Physical Therapy Current Condition Current Condition Evaluation Date 09/04/24 Treatment Diagnosis s/p L KARL anterior: difficulty in walking Onset Date 09/03/24 M3 PT-IP Subjective Start: 09/04/24 12:57 Freq: NEEDED Status: Active Protocol: Document 09/04/24 16:15 AB (Rec: 09/04/24 17:21 AB [id number]) Subjective Physical Therapy Visit Type Type Treatment Note Visit Start Time 16:15 Visit Stop Time 16:50 Number of PROPERTY MAN Visits 0 Physical Therapy Visit Comments Patient Comments agreeable to do PT M4 PT-IP Mobility and Gait Start: 09/04/24 12:57 Freq: NEEDED Status: Active Protocol: Document 09/04/24 16:15 AB (Rec: 09/04/24 17:21 AB [id number]) PT-Bed Mobility Assessment Supine to Sit Supine to Sit Standby Assistance,1 Person Assistance Sit to Supine Sit to Supine Standby Assistance,1 Person Assistance PT-Transfer Assessment Sit to and From Stand Sit to and from Stand Contact Guard Assistance,1 Person Assistance,Use of Upper Extremities Equipment Transfer Assistive Device Gait Belt,Front Wheeled Walker Orthotic/Prosthetic Devices or Brace: No Transfers Transfer Destination Chair Transfer Technique ambulated Transfer Ability Level of Assist Standby Assistance Comments Mobility Comments pt supine in bed and agreeable to do PT. completed supine to sit SBA but with max cues. pt completed sit to supine SBA . pt needing increase time to complete tasks. pt repeated bed mobility SBA without cues on 2nd set. reviewed hip precautions and pt able to recall. pt with questions regarding sleeping positions. educated pt regarding precautions and safety with sleeping positions. pt understood. pt completed sit to stand CGA and ambulated in the hallway using FWW ~ 250 ft SBA. cues for safety. pt ambulated back to his room and sat on the chair. call light and table placed within reach. provided pt with ice pack. Gait Assessment Gait Gait Assistance Required: Standby Assistance Distance (Feet) 250 Able to Maintain Weight Bearing Status Yes During Gait Assistive Devices Assistive Device Gait Belt,Front Wheeled Walker Orthotic/Prosthetic Devices or Brace: No Gait Deviations General Gait Pattern Antalgic,Decreased Feet Clearance Factors Limiting Gait Function Factors Limiting Gait Function Decreased Strength,Pain,Poor Balance,Poor Safety Awareness M5 PT-IP Objective Assessments Start: 09/04/24 12:57 Freq: NEEDED Status: Active Protocol: Document 09/04/24 11:15 AB (Rec: 09/04/24 13:12 AB [id number]) Orientation Orientation/Cognition Level of Alertness Alert Orientation Name,Place,Situation Language Function Ability Hard of Hearing Safety Awareness Decreased Safety Awareness Memory Description Short Term Impaired Gross Range of Motion Lower Extremity ROM Assessment Right Impaired Impairments R hip flexion limited ~ 90-100 deg Strength Lower Extremity Strength Assessment Left Impaired Hip 3+/5 Knee 4-/5 Coordination Assessment Gross Coordination Gross Coordination WNL Muscle Tone Muscle Tone WNL Yes M6 PT-IP Treatment Start: 09/04/24 12:57 Freq: NEEDED Status: Active Protocol: Document 09/04/24 16:15 AB (Rec: 09/04/24 17:21 AB [id number]) Physical Therapy Treatment Education Education Provided Precautions,Weight Bearing Status,Safety M7 PT-IP Assessment and Plan Start: 09/04/24 12:57 Freq: NEEDED Status: Active Protocol: Document 09/04/24 16:15 AB (Rec: 09/04/24 17:21 AB [id number]) PT Summary Assessment and Plan Potential Rehabilitation Potential Fair Summary Impairments Pain,ROM,Strength,Balance, Cognition,Bed Mobility, Transfers,Gait,Activity Tolerance Progress Towards Goals Progressing Toward Goals Assessment Summary pt progressing well with mobility and requiring SBA to CGA with mobility. [place] and at this time, plans to d/c to SNF to improve overall strength and mobility to increase independence prior to going back to prior home set up. Goals Bed Mobility Goal Independent Transfer Goal Independent,Front Wheeled Walker Gait Goal Independent,Front Wheel Walker Gait Distance 300 Other Goals up/down 2 steps SPC/without rail SBA Days to Meet Goals 10 Frequency of Treatment Frequency Of Treatment Once a Day Other frequency . Treatment Plan Physical Therapy Treatment Plan Bed Mobility Training,Transfer Training,Gait Training, Therapeutic Exercise,Balance Retraining,Post Op Education, Discharge Planning,Hot or Cold Pack,Neuromuscular Re-ed, Coordination Retraining,Manual Therapy Precautions Anterior Hip Precautions No Hip Extension,No Hip External Rotation Weight Bearing Status Weight Bearing Status Weight Bear as Tolerated Allowed Weight Bearing Amount (enter % LLE WBAT or #) (%) Recommendations To Nursing Amount of Assist Needed 1 Person Assist Discharge Recommendations PT Discharge Recommendations SNF Rehab Transportation Needs at Discharge Private Vehicle,Wheelchair/ Cabulance
[2024-09-04] MEDS: TRAZODONE 50 MG TABLET PO (20:37)
[2024-09-04] MEDS: LATANOPROST 0.005% 1 EACH EYE-BOTH (20:40)
[2024-09-04] MEDS: MELATONIN 3 MG TABLET 6 MG PO (20:43)
[2024-09-05 01:11] VITALS: BP 103/54; PULSE 71; RESP 20; TEMP 37.1; O2SAT 97
[2024-09-05] MEDS: IBUPROFEN 600 MG TABLET PO ×2 (06:33→12:38)
[2024-09-05] MEDS: ACETAMINOPHEN 325 MG TABLET 650 MG PO ×2 (06:33→12:39)
[2024-09-05] MEDS: FAMOTIDINE 20 MG TABLET 10 MG PO (08:53)
[2024-09-05] MEDS: EZETIMIBE 10 MG TABLET PO (08:53)
[2024-09-05] MEDS: ASPIRIN EC 81 MG TABLET PO (08:53)
[2024-09-05] MEDS: DOCUSATE 100 MG CAPSULE PO (08:53)
[2024-09-05] MEDS: TORSEMIDE 10 MG TABLET 5 MG PO (08:53)
[2024-09-05] MEDS: ATORVASTATIN 20 MG TABLET 40 MG PO (08:53)
[2024-09-05] MEDS: POTASSIUM CHLORIDE 10 MEQ TAB PO (08:54)
[2024-09-05] MEDS: SODIUM CHLORIDE 0.9% FLUSH 10 ML IV (08:54)
[2024-09-05] MEDS: DORZOLAMIDE EYE-BOTH (08:54)
[2024-09-05] MEDS: TIMOLOL EYE-BOTH (08:54)
--- NOTE | 2024-09-05 11:28 | OT.IP.TRT ---
Current Diagnoses Unilateral primary osteoarthritis, left hip (09/03/24) Presence of unspecified artificial hip joint (09/03/24) Surgery Performed Operation Date: 09/03/24 13:45 Actual Procedures p Total Hip Arthroplasty/Anterior Approach(Left) - Danny Boland MD Occupational Therapy Treatment Note M2 OT-IP Current Condition Start: 09/04/24 10:58 Freq: Status: Active Protocol: Document 09/04/24 10:58 [facility] (Rec: 09/04/24 11:12 [facility] [id number]) Occupational Therapy Current Condition Current Condition Evaluation Date 09/04/24 Treatment Diagnosis S/P L KARL Diagnosis Onset Date 09/03/24 Post Operative Precautions Anterior Hip Precautions No Hip Extension,No Hip External Rotation M3 OT- IP Subjective and Pain Start: 09/04/24 10:58 Freq: Status: Active Protocol: Document 09/05/24 12:52 [facility] (Rec: 09/05/24 13:03 [facility] [id number]) OT- Subjective Occupational Therapy Visit Type Type Treatment Note Visit Start Time 10:50 Visit Stop Time 11:28 Occupational Therapy Visit Comments Patient Comments Pt agreed to get up and wanting to work on bed mobility needs. Pt's daughter wanting OT to do SLUMS on pt as having concerns of his cognition. Patient/Caregiver Goals TO get better. OT Pain Assessment Pain When Pain Assessed During Mobility Pain Present Pain Present Pain Reported Location Left Hip Intensity 5 Scale Used Numeric (0 - 10) M4 OT- IP ADL's Start: 09/04/24 10:58 Freq: Status: Active Protocol: Document 09/04/24 10:58 [facility] (Rec: 09/04/24 11:12 [facility] [id number]) OT [id number] General Evaluation Self-Feeding Ability Independent OT ADL-Grooming General Evaluation Grooming Ability Independent OT ADL-Oral Care General Eval Oral Care Ability Independent OT ADL-Dressing General Eval Lower Body Dressing Ability Maximum Assistance Comments OT Dressing Comments Able to practice use of rig operator and sock aid with pt. OT ADL-Toileting Comments OT Toileting Comments Spoke about standing to wipe may be easier and use of wet ones. In addition to use a urinal at night. OT ADL-Bathing Comments OT Bathing Comments Spoke of shower chair /tub bench as pt's friend has a tub shower. Pt to stay at their house after skilled rehab- M5 OT- IP IADL's Start: 09/04/24 10:58 Freq: Status: Active Protocol: Document 09/04/24 10:58 [facility] (Rec: 09/04/24 11:12 [facility] [id number]) OT-Instrumental Activities of Daily Living Deficits IADL Deficits Identified Deficits Home Safety Awareness Awareness of Need for Assistance at Home Good Awareness Ability to Problem Solve Emergency Able to Problem Solve Situations Medication Management Medication Management Comments Prior pt did. Money Management Money Management Comments Prior pt did. Meal Preparation Meal Preparation Comments Pt will need assist. Radio Technician Radio Technician Comments Pt will need assist. M6 OT- IP Functional Cognition Start: 09/04/24 10:58 Freq: Status: Active Protocol: Document 09/05/24 12:52 [facility] (Rec: 09/05/24 13:03 [facility] [id number]) Cognitive Factors Limiting Selfcare Function Cognitive Ability Level of Alertness Alert Patient Orientation Name,Age,Birthday,Month,Date, Year,Day of Week,Place, Situation Attention Span Ability Capable of Focused Attention, Capable of Sustained Attention Ability to Follow Commands Able to Follow One Step Commands Memory Description Short Term Impaired,Working Impaired Cognitive Tests SLUMS Pt scored 21/30 which implied mild cognitive deficits. Pt able to recall 12 animals in one minute, able to recall 3/5 objects after time passes, not able to draw the hour hands of the clock correctly, and able to answer 2/4 questions right after paragraph read. Pt surprised that he did not do well and states did the a cognitive test last year with his doctor . Cognitive Comments Cognitive Assessment Comments Pt still forgetful and needing cues for safety and for his hip precautions. M7 OT- IP Mobility and Balance Start: 09/04/24 10:58 Freq: Status: Active Protocol: Document 09/05/24 12:52 [facility] (Rec: 09/05/24 13:03 [facility] [id number]) OT-Transfer Assessment Sit to and From Stand Sit to and from Stand Standby Assistance,Contact Guard Assistance Transfers Transfer Ability Standby Assistance Technique Transfer Destination Bed,Chair Transfer Technique Stand Step Pivot Devices Transfer Assistive Devices Gait Belt,Front Wheeled Walker Comments Mobility Comments Showed pt technique for bed mobility and at this time needing use of the gait belt to help get his LLE into the bed. OT- Balance Assessment Sitting Balance and Reactions Static Sitting Balance Ability Normal Dynamic Sitting Balance Ability Good Standing Balance and Reactions Static Standing Balance Ability Good Dynamic Standing Balance Ability Good M8 OT- IP Objective Assessments Start: 09/04/24 10:58 Freq: Status: Active Protocol: Document 09/04/24 10:58 [facility] (Rec: 09/04/24 11:12 [facility] [id number]) OT Gross Range of Motion Upper Extremity Range of Motion Assessment Within Functional Limits OT Strength Upper Extremity Strength Assessment Within Functional Limits M9 OT- IP Assessment and Plan Start: 09/04/24 10:58 Freq: Status: Active Protocol: Document 09/05/24 12:52 [facility] (Rec: 09/05/24 13:03 [facility] [id number]) OT Summary Assessment and Plan Potential Rehabilitation Potential Excellent Analytic Complexity at Evaluation Low Summary OT Impairments Balance,Functional Cognition, Functional Mobility,Dressing, Toileting,Bathing,Toilet Transfers,Shower Transfers Progress Towards Goals Progressing Toward Goals Assessment Summary Pt scored 21/30 on the SLUMS which implies cognitive impairments. Pt's daughter requesting assessment and also from OT concerns of forgetfulness on day of OT eval. Pt to go to skilled rehab when stable. Goals Dressing Goal Independent,Small Animal Caretaker,Sock Aid Toileting Goal Independent Bathing Goal Independent Toilet Transfer Goal Independent Shower Transfer Goal Independent Days to Meet Goals 15 Frequency of Treatment Other frequency 5x/week Treatment Plan OT Treatment Plan ADL Training,Functional Cognition Training,Functional Mobility,Patient/Family Education,Discharge Planning Discharge Recommendations OT Discharge Recommendations SNF Rehab Home Equipment Needs LB dressing equipment Transportation Needs at Discharge Private Vehicle,Wheelchair/ Cabulance
--- NOTE | 2024-09-05 11:32 | PM.DS.1 ---
History of Present Illness History of Present Illness Date Patient Seen: 09/05/24 Time Patient Seen: 11:32 Chief complaint: INPT Narrative: This patient was seen preoperatively and evaluated for hip pain which was refractory to numerous nonoperative treatment modalities. Their hip pain correlated with radiographic changes demonstrating significant degeneration in the hip joint. The risks and benefits of continued nonoperative management versus operative management were discussed at length and all of the patient?s questions were answered. Additional educational materials providing further details beyond our discussion in clinic were provided via a publicly available patient education video which included the incidence of medical complications associated with total hip arthroplasty, reasons for revision following total hip arthroplasty, and patient satisfaction rates following total hip arthroplasty. That video can be accessed at [email or web address] . With this understanding of the risks inherent to the procedure, the patient elected to move forward with operative management. Following preoperative optimization, the patient was scheduled for surgery. Discharge Providers Provider Date of admission: 09/03/24 11:43 Discharge Date: 09/05/24 Consults: 09/03/24 06:00 Consult to Anesthesiology Routine Comment: Consulting Provider: Anesthesiologist Reason for consultation: Regional block for post operative pain control Consult to Discharge Planning Routine Comment: per H&P, lives on [facility], needs SNF postop 09/03/24 17:45 Consult to Discharge Planning Routine Comment: Consult to Occupational Therapy Evaluate & Treat Comment: Physician Instructions: Evaluate and treat Consult to Physical Therapy Evaluate & Treat Comment: Physician Instructions: post op KARL protocol Discharge provider: Danis Carter PA-C Summary Hospital Course Discharge Diagnosis: Left hip osteoarthritis Hospital Course: Procedure: Left total hip arthroplasty Same procedure as scheduled: Yes Surgeon: Danny Boland Music Therapy Specialist: Alcira Thakur Anesthesia Type: Spinal, Sedation and Local Operative Notes Estimated Blood Loss (mL): 250 Procedure in detail: Left Uncemented Direct Anterior Depuy Total Hip Arthroplasty: Implants: [place] Gription size 64 cup?with +4 liner Actis femoral stem size 10 high offset? 36 mm -2 ceramic femoral head? Procedure Summary: This 74-year-old male patient is very tall and had bony anatomy consistent with this, as I utilized a 64 cup and a 10 stem. I had templated him for a standard polyethylene liner but the only size 64 liner we had in the hospital today was so I utilized a +4 liner. He had only been 2 mm short preoperatively and the end result after a fair amount of trialing with different constructs was that I used a-2 head after doing some extra broaching with the size 10 stem to sink it as much as possible in order to minimize the total length of his construct. I had templated him for a standard offset stem but with the transitioned to a-2 head it was necessary to utilize a high offset stem. The final construct was appropriate in all parameters and I was physically unable to dislocate his hip with maximum external rotation past 120?. Status at Discharge Cognitive/behavioral status at discharge: oriented Functional status at discharge: uses cane/walker Overall status at discharge: patient is back to baseline Time Spent with Patient Time spent: Less than 30 minutes Exam Vital Signs (past 8 hours): Oxygen Delivery Method Room Air Oxygen Flow Rate 0 Narrative Exam Narrative: Patient was found working with OT. Says he is feeling very well. He is able to ambulate with a walker and urinate on his own. Does have complain of spasms over his left hip. Patient's pain is controlled with oral medication. Pain is localized to surgical site. Patient declines any new numbness or tingling at the surgical extremity. Patient denies any shortness of breath, dizziness, light-headedness, nausea, vomiting, fever or chills. 5/5 strength in hip flexors, quadriceps, hamstrings, DF, PF, EHL bilaterally. Sensation to light touch intact throughout BLE. Calves soft, compressible, nontender. Dressing placed intraoperatively CDI. Objective Labs 09/04/24 05:50 [facility] Medical History (Updated 08/28/24 @ 12:52 by Kailee Rangel RN) History of angina History of COVID-19 (03/2023) Skin cancer Left shoulder pain Osteoarthritis Decreased GFR Hearing loss Glaucoma RLS (restless legs syndrome) BPH (benign prostatic hyperplasia) Insomnia HLD (hyperlipidemia) HTN (hypertension) GERD (gastroesophageal reflux disease) Diastolic dysfunction CAD (coronary artery disease) Surgical History (Updated 09/04/24 @ 07:28 by Alcira Thakur PA-C) History of orthopedic surgery Hx of tonsillectomy History of transurethral resection of prostate Hx of eye surgery (2022) H/O vasectomy History of total right hip replacement (~2013) History of total right knee replacement (07/30/21) Hx of heart artery stent (2019) Social History household members: none Smoking Status: Never smoker alcohol intake: current Discharge Assessment & Plan Assessment and Plan Assessment: Left hip osteoarthritis Plan of Treatment: Discharge to SNF due to primary resistance is a boat. ? Anterior Hip Pre-cautions. Ambulate and weight bear as tolerated with assistive devices. ? Aspirin 81 mg twice a day for 4 weeks for DVT prevention. ? Baseline pain relief with acetaminophen 650mg every 6 hours as needed and ibuprofen 600 mg every 6 hours as needed. ?Patient has been prescribed tramadol 50 mg every 4 ?hours as needed for breakthrough pain. ? Prescribed cyclobenzaprine 5 mg q.h.s. as needed for thigh spasms. Apply ice machine to operative hip as needed. Ensure that sufficient ice is in the chamber for the pad to remain cold In-house PT until medically stable to be discharged home, then initiate outpatient PT.. ? Keep dressing clean and dry. Keep dressing on until first office visit. If dressing becomes dirty or disrupted, replace with appropriate sized dressing. Follow up in clinic in 2 weeks for wound check. Contact clinic if there are any questions or concerns. Discharge Plan Discharge Plan Patient Disposition: [facility] Transfer to: [facility] Discharge orders & Medications Prescriptions: New acetaminophen 325 mg Tablet 650 mg PO Q6H PRN (Reason: Pain) Qty: 120 0RF tramadol 50 mg Tablet 50 mg PO QID PRN (Reason: Pain, Moderate (4-6)) Qty: 30 0RF ibuprofen 600 mg Tablet 600 mg PO Q6H PRN (Reason: pain) Qty: 60 0RF cyclobenzaprine 5 mg tablet 5 mg PO BEDTIME PRN (Reason: muscle spasm) Qty: 20 0RF Continued latanoprost 0.005 % Drops 1 drp EYE-BOTH QPM potassium chloride 8 mEq Capsule, Extended Release 8 meq PO DAILY lisinopril 20 mg Tablet 20 mg PO BID amlodipine 5 mg Tablet 5 mg PO BID torsemide 5 mg Tablet 5 mg PO QAM dorzolamide-timolol 22.3-6.8 mg/mL Drops 1 drp EYE-BOTH BID ezetimibe [Zetia] 10 mg Tablet 10 mg PO DAILY rosuvastatin 20 mg Tablet 20 mg PO DAILY nebivolol 2.5 mg Tablet 2.5 mg PO 1900 trazodone 50 mg Tablet 50 mg PO BEDTIME famotidine-Ca carb-mag hydrox 10-800-165 mg Tablet,Chewable 1 tab PO Q12H melatonin 5 mg Tablet 5 mg PO BEDTIME PRN (Reason: Sleep) Rx Instructions: 5-10 mg PRN Changed aspirin 81 mg Capsule 81 mg PO BID Qty: 60 0RF Discontinued ibuprofen 200 mg Tablet 200 mg PO DAILY PRN (Reason: Pain) Follow up/Referrals: Danny Boland MD [Physician] - 09/14/24 4:00 pm (Follow up w/ Jacoby Carter PA-C, at [facility] office in [place].) Diet/Activity/Treatments Diet: Diet as Tolerated Activity: Weightbearing as tolerated. Anterior hip precautions. Cold/Heat Therapy: Ice to hip as needed for pain. Skin/Wound/Dressing Care Report to your healthcare provider any signs of infection, such as:: chills, fever, night sweats, unusual drainage and unusual redness Dressing: May shower. Leave dressing in place until follow up in office. No bathing or otherwise soaking incision. Call the office if the dressing becomes saturated inside. [facility] Reason for rehabilitation: Post-operative therapy Rehab type: Physical therapy and Occupational therapy Visit Report/Discharge Packet Instructions: DI for Hip Replacement Stand Alone Forms: Patient Portal/API, Surgery Discharge Quality VTE Deep Vein Thrombosis/Pulmonary Embolism Present on Admission: No
--- NOTE | 2024-09-05 13:00 | CM.DPC ---
DCP Cont. Reviewed EMR and team rounds for status updates. Pt has been medically cleared for d/c to [facility] for SNF rehab. His daughter will be transporting him to the facility. No further d/c needs for CM at this time.
--- NOTE | 2024-09-05 13:11 | PC.NURSE ---
Iv out. Pt belongings packed up. Discussed follow up, discussed icing, pain management and next steps. pt wheeled out to private vehicle via wheelchair by PCT and accompanied by family member. Gave report to Theodora at [facility]- all questions answered
== END 2024-09-05 13:15 | DRG 470 ==
PROVIDERS: Admitting Provider Orthopaedic Surgery Adult Reconstructive Orthopaedic Surgery; Referring Provider Orthopaedic Surgery Adult Reconstructive Orthopaedic Surgery; Visit Provider Orthopaedic Surgery Adult Reconstructive Orthopaedic Surgery
PROC: 0SRB03A Replacement of Left Hip Joint with Ceramic Synthetic Substitute, Uncemented, Open Approach (ICD-10-PCS; CPT 27130; principal; 2024-09-03 13:45)
DX: M16.12 Unilateral primary osteoarthritis, left hip (principal); H40.9 Unspecified glaucoma; I10 Essential (primary) hypertension; I25.10 Atherosclerotic heart disease of native coronary artery without angina pectoris; N40.0 Benign prostatic hyperplasia without lower urinary tract symptoms; E78.5 Hyperlipidemia, unspecified; K21.9 Gastro-esophageal reflux disease without esophagitis; G47.00 Insomnia, unspecified; Z96.651 Presence of right artificial knee joint; Z96.641 Presence of right artificial hip joint; Z95.5 Presence of coronary angioplasty implant and graft; Z59.89 Other problems related to housing and economic circumstances
CPT/HCPCS: 36415; 73502; 76000; 85014; 85018; 97116; 97129; 97161; 97165; 97530; 97535; C1776; A9270; C1713; J0690; J1100; J2405; J2704; J3010